=== PATIENT | female | born 1985 | race Caucasian/White ===

== ENCOUNTER → 2019-02-21 | Outpatient (CLI) | payer OTHER, SELFPAY ==
[2019-03-21 16:35] LABS: HPV Reflexed? NOT INDICATED
== END | disposition home or self-care (01) ==
PROVIDERS: Referring Provider Obstetrics & Gynecology; Visit Provider Obstetrics & Gynecology
DX: Z12.4 Encounter for screening for malignant neoplasm of cervix (principal)
CPT/HCPCS: 87624; 88175; G0145

== ENCOUNTER → 2019-04-24 | Outpatient (CLI) | payer OTHER, SELFPAY ==
[2017-04-18 07:13] VITALS: BMI 31.1
[2019-04-25 20:13] LABS: Chlamydia Trachomatis by PCR Negative (Negative); Neisserai gonorrhoeae by PCR Negative (Negative); Probe Check PASS; Sample Adequacy Control PASS; Specimen Processing Control PASS
== END | disposition home or self-care (01) ==
LOC: LABSPEC 04-25 09:46
PROVIDERS: Visit Provider Obstetrics & Gynecology
DX: Z11.3 Encounter for screening for infections with a predominantly sexual mode of transmission (principal)
CPT/HCPCS: 87491; 87591

== ENCOUNTER 2019-10-25 18:10 | Outpatient (CLI) | payer OTHER, SELFPAY ==
[2017-04-18 07:13] VITALS: BMI 31.1
[2019-10-25 18:32] VITALS: BMI 31.1
--- NOTE | 2019-10-27 23:04 | OB.TRI.NOTE ---
History of Present Illness Date of Service: 10/25/19 Was patient seen by the physician?: No Reason For Visit: FALL Date of Service: 10/25/19 Final CHRISTIANO: 12/07/19 Gestational age: 33 weeks 6 days History of Present Illness: This is a late entry for 10/25/19 Pt states she fell on 10/24/19; she fell on her side, not her abdomen; she initially called into the office at approx 1555 today stating that she feel onto her side on her kitchen floor tile; she denied VB or LOF, and when advised to go in to L&D for monitoring she stated that she felt fine and declined to go. At approx 1630 she called back to the office and stated that she would go in to L&D Allergies No Known Allergies Allergy (Verified 10/25/19 18:32) NST - FHR Rate Baby A Baseline: 130 Variability:: Moderate Accelerations:: 15 x 15 Decelerations:: None NST Reactive:: Yes, Appropriate for gestational age FHR Category:: Category I - Occasional Impression/Plan Assessment: 33 yo at 33w6d gestation by 10w4d US s/p Fall and extended monitoring Cat 1 FHTs Plan: Discharge home with increased fluids, rest, and FM counts Report any VB, LOF or extreme abdominal pain RTO next scheduled PNV
== END 2019-10-25 22:30 | disposition home or self-care (01) ==
LOC: WPOUT 18:20 → WP 18:20
PROVIDERS: Referring Provider Advanced Practice Midwife; Visit Provider Advanced Practice Midwife
DX: Z04.3 Encounter for examination and observation following other accident (principal)
CPT/HCPCS: 59025; 59050; 99218; G0378

== ENCOUNTER → 2019-11-13 | Outpatient (CLI) | payer OTHER, SELFPAY ==
[2019-10-25 18:32] VITALS: BMI 31.1
== END | disposition home or self-care (01) ==
LOC: LABSPEC 11-14 08:54
PROVIDERS: Visit Provider Obstetrics & Gynecology
DX: Z34.83 Encounter for supervision of other normal pregnancy, third trimester (principal)
CPT/HCPCS: 87081

== ENCOUNTER 2019-11-30 19:05 | Inpatient (IN) | payer OTHER, SELFPAY ==
[2019-11-30] MEDS: Lactated Ringers 1,000 ML 50 ML IV (19:40)
[2019-11-30 20:03] VITALS: BMI 32.3
[2019-11-30 20:25] LABS: Absolute Lymphocyte Count 1.61 X10^3/uL (0.83-4.51); Absolute Neutrophil Count 4.6 X10^3/uL (2.0-7.7); Basophil# 0.01 X10^3/uL; Basophil% 0.1 % (0-1); Eosinophil# 0.07 X10^3/uL; Hematocrit 33.7 % (37-47); Hemoglobin 11.2 g/dL (12.0-15.0); Lymphocyte # 1.61 X10^3/ul (4.0); Lymphocyte % 23.2 % (19-41); Mean Corp Hgb Conc 33.2 g/dL (32-36); Mean Corpuscular Hgb 29.5 pg (27.0-32.0); Mean Corpuscular Volume 88.7 fL (81-99); Mean Platelet Vol. 11.6 fl (6.2-12.0); Monocyte# 0.64 X10^3/uL; Monocyte% 9.2 % (0-10); NRBC Flagged by Analyzer 0 % (0-5); Neutrophil # 4.58 X10^3/uL (2.7-7.7); Neutrophil % 65.9 % (47-70); Platelet Count 194 K/mm3 (150-450); RBC Distribution Width SD 45.1 fl (35.1-43.9)
[2019-11-30] MEDS: Lactated Ringers 500 ML 999 ML IV (20:30)
[2019-11-30] MEDS: fentaNYL-bupivacaine (epidural) 100 ML BAG EPIDURAL (21:44)
--- NOTE | 2019-11-30 21:44 | PCM.HP.OB ---
- Problem List (1) 39 weeks gestation of Status: Acute (2) Encounter for elective induction of labor Status: Acute History Date of Admission: 11/30/19 Final CHRISTIANO: 12/07/19 Gestational age: 39 Weeks and 0 Days History of this : This is a 33 year-old, G [4], P [3], at 39 weeks gestational age. Here for elective induction of labor. Allergies No Known Allergies Allergy (Verified 11/30/19 20:04) Home Medications: Home Medications Vit No.130/Iron/Folic [ Vitamins] 1 each PO DAILY 04/10/17 Smoking Status: Never smoker Alcohol: None Number of Fetus(es): 1 NST - FHR Rate Baby A Baseline: 150 Variability:: Moderate Accelerations:: 15 x 15 Decelerations:: None NST Reactive:: Yes FHR Category:: Category I Uterine Activity:: quiet History Past Pregnancies: Past Pregnancies Delivery Date Name GA/ Weeks Outcome Route Wt Labor Length Anesthesia Delivery Location Provider FOB 09/27 40 viable vag 8.7 11 Epidural [place] 07/01 40 viable vag 7.12 5 Epidural [facility] 05/02 viable vag Epidural [place] Labs: Mom's Problem List Problem Status Onset Code 39 weeks gestation of Acute Z3A.39 Encounter for elective induction of labor Acute Z34.90 Mom's Labs & Results 11/30/19 11/30/19 19:40 19:40 WBC 7.0 RBC 3.80 L Hgb 11.2 L Hct 33.7 L MCV 88.7 MCH 29.5 MCHC 33.2 RDW Std Deviation 45.1 H RDW Coeff of Chi 14.0 Plt Count 194 MPV 11.6 Immature Gran % (Auto) 0.600 Neut % (Auto) 65.9 Lymph % (Auto) 23.2 [place] % (Auto) 9.2 Eos % (Auto) 1.0 Baso % (Auto) 0.1 Absolute Neuts (auto) 4.6 Absolute Lymphs (auto) 1.61 Nucleated RBC % 0 Blood Type O POSITIVE Antibody Screen NEGATIVE Course Did the patient receive Yes care? Labs Blood Type: O RH: POSITIVE RPR/VDRL/Syphilis Nonreactive Rubella status Immune HbSAg Negative Date Done: 05/15/19 Chlamydia Negative Gonorrhea Negative HIV/AIDS Non-Reactive Group B Strep: Negative Current Obstetrical History Gestational Diabetes No Incompetent Cervix No Infertility No IUGR No Macrosomia No Hypertension/Pre-eclampsia No Placenta Previa/Abruption No PTL/PROM No Uterine anomaly No Oligohydramnios No Polyhydramnios No Multiple gestation No Past Medical History Asthma No Diabetes No Hypertension No Heart disease No Mitral valve prolapse No Neurologic/Seizure disorder/ No Migraines Kidney disease No Liver disease No Varicosities No Clotting disorders/Hx of DVT No Thyroid Dysfunction No Other medical diseases No Psychiatric disorders No Major trauma No Abnormal PAP smear No Sleep apnea No Mammogram in the last 2 years No Social History Marital Status: Alleged father Jn Jain Hx Smoking No Smoking Status Never smoker Expected Delivery Method: Spontaneous Vaginal Number of Visits: 8 Review of Systems Constitutional: Denies: Chills, Fever, Weight Change HEENT: Denies: Head Aches, Sinus Congestion, Sinus Drainage Cardiovascular: Denies: Chest Pain, Palpitations Respiratory: Denies: Cough, Shortness of breath at rest, Sputum production Gastrointestinal: Denies: Abdominal Pain, Nausea, Vomiting Genitourinary: Denies: Dysuria Musculoskeletal: Denies: Joint Pain, Joint Tenderness Skin: Denies: Rash, Wounds Neurological: Denies: Numbness, Tingling, Focal weakness Psychiatric: Denies: Anxiety, Depression, Homicidal Ideations, Suicidal Ideations Hematologic/ Lymphatic: Denies: Easy Bruising, Easy Bleeding Physical Exam General: Alert, Oriented x3, No apparent distress HEENT: Atraumatic, Normocephalic. Negative for: Thyromegaly, Lymphadenopathy Cardiovascular: Regular rate, Regular Rhythm Lungs: Clear to auscultation Abdomen: Bowel Sounds Present, Gravid Neurological: Deep Tendon Reflexes 2+/4 and Symmetrical, Neuro grossly intact [employer]ER: Normal external genitalia. Negative for: Vulvar lesions Estimated gestational size: Appropriate for gestational size Presentation: Cephalic Cervix Dilation (cm): 4.5 - per life scientist Station: -2 Effacement (%): 70 Assessment/Plan All Active Problems 39 weeks gestation of (Acute) Encounter for elective induction of labor (Acute) A: This is a 33 year-old, G [4], P [3], at 39 weeks gestational age. Elective induction of labor. NST category I reactive P: Epidural for pain management Pitocin and AROM for induction Expect
[2019-11-30] MEDS: Oxytocin 30 units/NS 500 ml 30 UNITS/500 ML IV.SOLN IV (21:52)
[2019-12-01] MEDS: Lactated Ringers 500 ML 999 ML IV (01:56)
[2019-12-01] MEDS: fentaNYL-bupivacaine (epidural) 100 ML BAG EPIDURAL ×2 (01:57→06:30)
--- NOTE | 2019-12-01 03:50 | PCM.PN.BLA ---
Progress Note LABOR PROGRESS NOTE S: Reports epidural is working well. Not having any pain with contractions and is very comfortable. Actually resting better here than even at home. O: AVSS Baseline FHR 140, +accels, -decels, moderate variability. UC Q2 minutes SVE 7/70/-1 Pitocin on A: Reactive Category I NST Induction of labor P: Continue with IOL Expect
[2019-12-01] MEDS: Lactated Ringers 1,000 ML 200 ML IV (05:33)
--- NOTE | 2019-12-01 07:32 | PCM.PN.BLA ---
Progress Note LABOR PROGRESS NOTE S: Having pressure with each contraction and states just ready to have this baby O: AVSS SVE 9/90/0 with anterior lip UC 1.5-2 minutes FHR baseline 125, + accels, - decels, moderate variability AROM clear amniotic fluid Pitocin at 10 A: Induction of labor Reactive Category I NST P: Continue with IOL Expect
[2019-12-01] MEDS: Oxytocin 30 units/NS 500 ml 30 UNITS/500 ML IV.SOLN 334 UNITS IV (08:07)
[2019-12-01] MEDS: Methylergonovine 0.2 MG/ML Ampul IM (08:14)
[2019-12-01] MEDS: miSOPROStol 200 MCG Tablet 1000 MCG RECTAL (08:48)
[2019-12-01] MEDS: 0.9% Saline Lock 10 ML Syringe IV (10:40)
[2019-12-01 13:05] VITALS: BP 132/78; PULSE 89; RESP 16; TEMP 37.7; O2SAT 99
[2019-12-01] MEDS: Acetaminophen 500 MG Tablet 1000 MG PO ×2 (14:19→22:13)
[2019-12-01 16:15] VITALS: BP 123/69; PULSE 100; RESP 18; TEMP 36.9
[2019-12-01] MEDS: Ibuprofen 600 MG Tablet PO (16:36)
--- NOTE | 2019-12-01 16:50 | PCM.OPRPT ---
Problem List (1) 39 weeks gestation of Status: Inactive (2) Encounter for elective induction of labor Status: Inactive (3) NVD (normal vaginal delivery) Status: Acute Vaginal Delivery Maternal Presentation: Elective Induction Method of Induction: Pitocin Amniotic Membrane Rupture Type: Artificial Amniotic Fluid Description: Clear Final CHRISTIANO: 12/07/19 Final CHRISTIANO Source: US <20 weeks Gestational age: 39 Weeks and 1 Days Date of Procedure: 12/01/19 Pre-Operative Diagnosis: Elective IOL Post-Operative Diagnosis: S/P NVD Surgery/ Procedure Performed: Spontaneous Vaginal Delivery Type of Anesthesia: Epidural Description of Procedure: When patient complete +1 started pushing and process description writer called to room. Pushed well with spontaneous delivery of head. Viable male infant born with Apgars of 8/9 from vertex to MARCUS presentation with clear amniotic fluid. Delayed cord clamping x 2 minutes, cord clamped and cut by CNM. Normal three-vessel cord and intact placenta on inspection. Loose nuchal x1. Pitocin by IV initiated per protocol. Second degree perineal laceration repaired with a double 3.0 rapide. Fundus boggy with massage. Retained products and large clots removed via manual extraction. IM Methergine given. Fundus firm, midline at umbilicus. EBL 400. Sponge and instrument count correct x 2. Presentation: Vertex, MARCUS Placental Delivery Description: Spontaneous Placenta Disposition: [facility] Cord Vessel Description: 3 Vessels Cord Entanglement: Around neck x 1, loose Estimated Blood Loss: 400 Infant A gender: Male (1 minute): 8 (5 minute): 9 Episiotomy Description: None Laceration: Perineal Extension/lac, 2nd degree Medications given after delivery: IV Pitocin, IM Methergin
--- NOTE | 2019-12-01 17:27 | DCINST_ITS ---
Discharge Diet: No Restrictions Discharge Activity: Return to Normal Activity, May not drive while taking narcotic pain medications., May Shower May resume sexual activity in: 4-6 weeks Additional Activity Instructions:: Nothing in the vagina for 4-6 weeks. You may return to work/school in 6 weeks. Call your doctor if your incision/area has: Continuous Slow Oozing, Sudden Increased Bleeding, Increased Pain/ Swelling, Increased Redness, Foul Smelling Discharge Instructions: After a Vaginal , Understanding Depression, Nutrition While , at Home Additional Instructions: If you experience any of the following, contact your healthcare provider. * Bleeding that soaks a pad every hour for 2 hours * Fever 100.4 or higher * Unrelieved incision or abdominal pain * Swelling, redness, discharge or bleeding from your incision or episiotomy site * Your incision begins to separate * Problems urinating (including inability to urinate or burning while urinating). * Visual changes * Severe headache * Flu-like symptoms * Pain or redness in one of both of your breasts * Pain, warmth, tenderness or swelling in your legs, especially the calf area * Frequent nausea and vomiting * Symptoms of depression or anxiety If you experience any of the following, call 911 or go to the nearest Emergency Room. * Chest pain * Problems breathing * Seizure activity * Partial or complete paralysis of a body part, slurred speech, weakness or drooping of the face, or a sudden inability to walk or hold your balance Allergies/Adverse Reactions: Allergies No Known Allergies Allergy (Verified 11/30/19 20:04) Medications to take at Discharge Vit No.130/Iron/Folic [ Vitamins] 1 each PO DAILY 04/10/17 Please Follow Up With: Yadiel Byers MD When: Call to make an appointment with your doctor in 6 weeks. Primary Care Physician: Julien Christianson MD [Primary Care Provider] - Test Results: Test results from this visit will be discussed in further detail at your follow- up appointment, if applicable. Proposed Discharge Date: 12/03/19
[2019-12-01 19:51] VITALS: BP 119/61; PULSE 84; RESP 14; TEMP 36.8
[2019-12-02 00:07] VITALS: BP 118/58; PULSE 74; RESP 14; TEMP 36.8
[2019-12-02] MEDS: oxyCODONE 5 MG Tablet PO ×6 (00:08→20:05)
[2019-12-02 04:10] VITALS: BP 112/68; PULSE 78; RESP 16; TEMP 36.4
[2019-12-02 08:07] VITALS: BP 124/63; PULSE 86; RESP 14; TEMP 36.9
[2019-12-02] MEDS: Ibuprofen 600 MG Tablet PO ×2 (08:22→17:46)
--- NOTE | 2019-12-02 12:53 | PCM.PN.BLA ---
Progress Note S: Feeling okay, but reporting a lot of pain with laceration. Pain a 6/10 and unable to sit or lay without being on her side. Son is well although he has a tongue tie. O: VSS. Fundus u/1, firm, midline Normal lochia rubra Laceration very mild edema, but not erythematous and no masses/nodules felt A: Post vaginal delivery day #1 Infant male is Normal involution and course P: RN to watch bleeding and patient understands if passing any clots to report to RN. Son to still be circumcised and 24 hour testing to be done Stable to discharge home tomorrow Educated on sitz baths, narcotics, ice, and staying off of bottom directly To return to office in 2 weeks
[2019-12-02 13:51] VITALS: BP 102/58; PULSE 88; RESP 16; TEMP 37.1
[2019-12-02 20:05] VITALS: BP 133/75; PULSE 107; RESP 16; TEMP 36.5
[2019-12-03] MEDS: Ibuprofen 600 MG Tablet PO ×2 (00:35→11:21)
[2019-12-03 01:30] VITALS: BP 99/54; PULSE 70; RESP 16; TEMP 36.7
[2019-12-03] MEDS: oxyCODONE 5 MG Tablet PO ×2 (07:00→11:21)
[2019-12-03 08:00] VITALS: BP 125/69; PULSE 76; RESP 16; TEMP 36.9
--- NOTE | 2019-12-03 08:56 | PCM.DC.SUM ---
Discharge Date and Diagnosis - Problem List Patient Problems: Active and Suspected Problems NVD (normal vaginal delivery) (Acute) Date of Admission: 11/30/19 Date of Discharge: 12/03/19 - Primary Discharge Diagnosis Active and Suspected Problems NVD (normal vaginal delivery) (Acute) Hospital Course and Treatment Summary of Care Provided: The patient is a 34 year old F [] after with elective induction of labor. Patient Problems: Active and Suspected Problems NVD (normal vaginal delivery) (Acute) Subjective: Bottom is still sore, but no increase in pain. son well. Reports light lochia rubra. Has had 2 BMs. Objective: VSS. Fundus u/2, firm, midline. Vaginal laceration/repair with no s/s of infection. - Physical Exam Vitals/I&O's: Vital Signs Temp Pulse Resp BP Pulse Ox 98.4 F 76 16 125/69 H 99 12/03/19 08:00 12/03/19 08:00 12/03/19 08:00 12/03/19 08:00 12/01/19 13:05 Oxygen Delivery Method Room Air Weight: 93.8 kg Body Mass Index (BMI) 32.3 Intake and Output for Last 24 Hours 12/01/19 12/02/19 12/03/19 23:59 23:59 23:59 Intake Total 3636.88 / 3636.88 Output Total 1500 / 1500 Balance 2136.88 / 2136.88 General: Alert, Oriented x3, Cooperative HEENT: Atraumatic, PERRLA, EOMI, Normocephalic Neck: Supple, No JVD, Negative Carotid Bruits Lungs: Clear to auscultation, Normal air movement Cardiovascular: Regular rate, No murmurs Abdomen: Bowel Sounds Present, Soft, Non Tender, Passing Flatus Extremities: No edema, Capillary Refill Less than 3 Seconds Skin: No rashes, No breakdown, Incision - vaginal laceration/repair Musculoskeletal: No Tenderness to Palpation of Joints or Extremities Neurological: Cranial nerves II-XII grossly intact Psych/Mental Status: Normal Affect, Appropriate Current Medications Acetaminophen (Tylenol) 1,000 mg PO Q8H PRN PRN PRN Reason: Pain Score 1-3/10 Last Admin: 12/01/19 22:13 Dose: 1,000 mg Documented by: Bisacodyl (Dulcolax) 10 mg RECTAL UD PRN PRN Reason: If no BM Dibucaine (Dibucaine) 1 applic TOPICAL TID PRN PRN; Protocol PRN Reason: Discomfort Hydrocortisone (Hytone) 1 applic TOPICAL TID PRN PRN; Protocol PRN Reason: Discomfort Ibuprofen (Motrin) 600 mg PO Q6H PRN PRN PRN Reason: Pain Score 1-3/10 Last Admin: 12/03/19 00:35 Dose: 600 mg Documented by: Methylergonovine Maleate (Methergine) 0.2 mg IM X1 PRN PRN Reason: Excess bleeding/uterine atony Last Admin: 12/01/19 08:14 Dose: 0.2 mg Documented by: Ondansetron HCl (Zofran) 4 mg IV Q4H PRN PRN PRN Reason: Nausea Oxycodone HCl (Oxyir) 5 - 10 mg PO Q4H PRN PRN PRN Reason: Pain Score 6-10/10 Last Admin: 12/03/19 07:00 Dose: 10 mg Documented by: Senna/Docusate Sodium (Senokot-S, Kayla-Colace) 1 - 2 tablet PO DAILY PRN PRN PRN Reason: Constipation Simethicone (Mylicon) 80 mg PO PCHS PRN PRN Reason: Indigestion/Stomach pain Sodium Chloride () 5 - 15 ml IV UD PRN PRN Reason: SALINE FLUSH Last Admin: 12/01/19 10:40 Dose: 10 ml Documented by: Discharge Diet: No Restrictions Discharge Activity: Return to Normal Activity, May not drive while taking narcotic pain medications., May Shower May resume sexual activity in: 4-6 weeks Additional Activity Instructions:: Nothing in the vagina for 4-6 weeks. You may return to work/school in 6 weeks. Call your doctor if your incision/area has: Continuous Slow Oozing, Sudden Increased Bleeding, Increased Pain/ Swelling, Increased Redness, Foul Smelling Discharge Home Medications: Medications to take at Discharge Vit No.130/Iron/Folic [ Vitamins] 1 each PO DAILY 04/10/17 Oxycodone [Oxyir] 5 mg PO Q4H PRN PRN 3 Days #10 tab 12/02/19 Acetaminophen [Tylenol] 1,000 mg PO Q8H PRN PRN tablet 12/03/19 Dibucaine 1 applic TOPICAL TID PRN PRN tube 12/03/19 Hydrocortisone 2.5% Crm [Hytone] 1 applic TOPICAL TID PRN PRN tube 12/03/19 Ibuprofen [Motrin] 600 mg PO Q6H PRN PRN tablet 12/03/19 Senna/Docusate Sodium [Senokot-S] 1 - 2 tablet PO DAILY PRN PRN tablet 12/03/19 Following Prescrptions Were Given to Patient: Oxycodone [Oxyir] 5 mg PO Q4H PRN PRN 3 Days #10 tab PRN Reason: Pain Score 6-10/10 Transmission Status: Received by [facility] Primary Care Physician: Julien Christianson MD [Primary Care Provider] - Please Follow Up With: Yadiel Byers MD When: In 6 weeks for routine PP checkup. If increased vaginal pain to return in 2 Patient Instructions: After a Vaginal , Nutrition While , Understanding Depression, at Home Disposition: Home Minutes spent on discharge:: 30 Patient Condition:: Stable Medical Necessity - Tobacco Use Smoking Status: Never smoker Meaningful Use Info Meaningful Use Diagnoses (Choose all that apply): None applicable
== END 2019-12-03 11:55 | disposition home or self-care (01) | DRG 807 ==
PROVIDERS: Admitting Provider Obstetrics & Gynecology; PCP Family Medicine; Visit Provider Obstetrics & Gynecology
DX: O69.81X0 Labor and delivery complicated by cord around neck, without compression, not applicable or unspecified (principal); Z37.0 Single live birth; Z3A.39 39 weeks gestation of pregnancy; O70.1 Second degree perineal laceration during delivery; O73.1 Retained portions of placenta and membranes, without hemorrhage
CPT/HCPCS: 59025; 59050; 85025; 86850; 86900; 86901; 99218; J7120; A4216; G0378

== ENCOUNTER 2021-12-31 14:08 | Outpatient (CLI) | payer OTHER, SELFPAY ==
--- NOTE | 2021-12-31 14:15 | BI_ITS ---
MAMMOGRAPHY - BILATERAL DIAGNOSTIC REASON FOR EXAM: Female, 36 years old. LUMPS PERTINENT HISTORY: Non-contributory. TECHNIQUE: Digital examination. Mediolateral oblique (MLO) and craniocaudad (CC) views of both breasts were obtained. CAD: CAD was performed on this study. COMPARISON: None. FINDINGS: Breast Composition: The breasts are heterogeneously dense, which may obscure small masses. There are no dominant masses or suspicious calcifications. No other significant abnormalities are identified. BI/DIAG MAMM W/CAD, BILAT IMPRESSION: Stable bilateral diagnostic mammogram. ASSESSMENT CATEGORY: BIRADS Category 1: Negative. A letter regarding these results will be sent to the patient by the facility within 30 days. FOLLOW UP RECOMMENDATION: Yearly follow up mammogram recommended. (A) Approximately 10% of breast cancers are not detected by mammography. A normal mammogram should not delay biopsy of a clinically suspicious abnormality. Electronically Signed: Jamal Branch MD at 15:18 EDT ,
== END 2021-12-31 23:59 | disposition home or self-care (01) ==
PROVIDERS: PCP Family Medicine; Referring Provider Nurse Practitioner Family; Visit Provider Nurse Practitioner Family
DX: N60.29 Fibroadenosis of unspecified breast (principal)
CPT/HCPCS: 77062; 77066; G0279